=== PATIENT | female | born 1965 | race Caucasian/White ===

== ENCOUNTER 2017-08-22 00:53 | Emergency (ER) | payer SELFPAY ==
[2017-08-22 01:04] VITALS: BP 195/91; BMI 37.8
[2017-08-22] MEDS ORDERED: NS 1000 ML 1,000 ML IV ONE (01:49)
[2017-08-22] MEDS ORDERED: NS 1000 ML 1,000 ML ONE (01:51)
--- NOTE | 2017-08-22 02:01 | DR.GENAD ---
HPI - PCP Primary Care Physician: Jose Roberto Barrios - Complaint/Symptoms Chief Complaint:: Started having stomach pain, increased thirst and sugar level was reading high on blood sugar monitor at home. No history of blood sugar problems. Self Treatment fo Chief Complaint: took 20 units of 's lantus and 20 units of 's humalog twice in past 4 hours. She statesthat her PCP had informed her of being boederline diabetic about a year ago. - Nurses notes reviewed Nurses Notes Review: Yes - Source History Provided: Patient - Mode of Arrival Mode of Arrival: Ambulatory - Timing Onset of Chief Complaint: 08/21/17 PMH - PMH Past Medical History: Yes Past Medical History Comment: Fibromyalgia, RLS, Pancreatitis, Stomach problems , Bleeding ulcer Past Surgical History: Yes Surgical History: Abdominal Surgery, , Cholecystectomy, Hysterectomy, Ortho Surgery Past Surgical History Comment: pancreatic surgery - Family History History of Family Medical Conditions: Yes Family Medical History: Diabetes Mellitus, Cancer, [place], Coronary Artery Disease, Heart Failure, Sudden Cardiac , Hypertension - Social History Does patient currently use any type of tobacco product: No Have you used tobacco products in the last 12 months: No Type of Tobacco Use: None Does any household member use tobacco: No Alcohol Use: None Do you use any recreational Drugs:: No Lives With: Family Lives Where: Home - infectious screening In the last 2 months have you had wt loss of >10#?: NO Have you had fever, night sweats or hemotysis?: No Have you traveled outside the country in the last 6 months?: No Isolation: Standard ROS - Review of Systems Constitutional: No Symptoms Reported Eyes: No Symptoms Reported ENTM: No Symptoms Reported Respiratoy: No Symptoms Reported Cardiovascular: No Symptoms Reported Gastrointestinal/Abdominal: No Symptoms Reported Genitourinary: No Symptoms Reported Neurological: No Symptoms Reported Musculoskeletal: No Symptoms Reported Integumentary: No Symptoms Reported Hematologic/Lymphatic: No Symptoms Reported Endocrine: Increased Thirst Psychiatric: No Symptoms Reported All Other Systems: Reviewed and Negative PE - Vital Signs Vitals: Temperature 98.2 F Pulse Rate 103 Respiratory Rate 20 Blood Pressure 195/91 O2 Sat by Pulse Oximetry 100 - General Limitations: No Limitations General Appearance: Alert, In No Apparent Distress - Head Head Exam: Normal Inspection - Eyes Eye exam: Normal Appearance, PERRL, EOMI - ENT ENT Exam: Normal Exam - Neck Neck Exam: Normal Inspection, Full ROM - Chest Chest Inspection: Normal Inspection - Respiratory Respiratory Exam: Normal Lung Sounds Bilat - Cardiovascular Cardiovascular Exam: Regular Rate, Normal Rhythm, Normal Heart Sounds, +S1, +S2 - Abdominal Exam Abdominal Exam: Normal Inspection, Normal Bowel Sounds, Soft - Extremities Extremities Exam: Normal Inspection, Full ROM - Back Back Exam: Normal Inspection - Neurologic Neurological Exam: Alert, Oriented X3 - Psychiatric Psychiatric Exam: Normal Affect, Normal Mood - Skin Skin Exam: Warm, Dry, Intact, Normal Color Course - Reevaluation 1st: Improved - Education/Counseling Education/Counseling: Patient, Family, Education, Counseling Educated On: Treatment, Diagnosis, Prognosis, Needs for Follow Up ROR - Labs Reviewed Result Diagrams: 08/22/17 02:10 Laboratory: Sodium 132 mmol/L (136-145) L 08/22/17 02:10 Corrected Sodium 141 mmol/L (136-145) 08/22/17 02:10 Potassium 4.2 mmol/L (3.5-5.1) 08/22/17 02:10 Chloride 94 mmol/L (98-107) L 08/22/17 02:10 Carbon Dioxide 28.6 mmol/L (21-32) 08/22/17 02:10 BUN 12 mg/dL (7-18) 08/22/17 02:10 Creatinine 0.96 mg/dL (0.55-1.02) 08/22/17 02:10 Est GFR (MDRD) Af Amer > 60 (>60) 08/22/17 02:10 Est GFR (MDRD) Non-Af > 60 (>60) 08/22/17 02:10 Glucose 477 mg/dL (65-99) H 08/22/17 02:10 POC Glucose (mg/dL) 345 mg/dL (65-99) H 08/22/17 03:31 Hemoglobin A1c 10.9 % 08/22/17 02:10 Calcium 8.5 mg/dL (8.5-10.1) 08/22/17 02:10 Amylase 12 Units/L (25-115) L 08/22/17 02:10 Lipase 91 Units/L (73-393) 08/22/17 02:10 Specimen Type Clean catch urine 08/22/17 02:10 Urine Color Pale yellow (YELLOW) 08/22/17 02:10 Urine Appearance Clear (CLEAR) 08/22/17 02:10 Urine pH 6.0 (5.0 - 8.0) 08/22/17 02:10 Ur Specific [place] 1.005 (1.000-1.030) 08/22/17 02:10 Urine Protein Negative (NEGATIVE) 08/22/17 02:10 Urine Glucose (UA) 4+ (NEGATIVE) 08/22/17 02:10 Urine Ketones Negative (NEGATIVE) 08/22/17 02:10 Urine Occult Blood Negative (NEGATIVE) 08/22/17 02:10 Urine Nitrite Negative (NEGATIVE) 08/22/17 02:10 Urine Bilirubin Negative (NEGATIVE) 08/22/17 02:10 Urine Urobilinogen Normal (NORMAL) 08/22/17 02:10 Ur Leukocyte Esterase Negative (NEGATIVE) 08/22/17 02:10 Acetone, Semi-Quant Negative (NEGATIVE) 08/22/17 02:10 - Diagnosis Discharge Problem: Uncontrolled type 2 diabetes mellitus with hyperglycemia - Discharge Plan Disposition: 01 HOME, SELF-CARE Condition: Stable - Follow ups/Referrals Follow ups/Referrals: JOSE ROBERTO BARRIOS [Primary Care Provider] - 3 days - Instructions Instructions: Type 2 Diabetes Mellitus, Diagnosis, Adult
[2017-08-22] MEDS ORDERED: PROTONIX TAB 40 MG PO ONE ×2 (02:09→03:00)
[2017-08-22 02:31] LABS: BLOOD UREA NITROGEN 12 mg/dL (7-18); CALCIUM 8.5 mg/dL (8.5-10.1); CARBON DIOXIDE 28.6 mmol/L (21-32); CHLORIDE 94 mmol/L (98-107); COR NA(FOR HYPERGLY) 141 mmol/L (136-145); CREATININE 0.96 mg/dL (0.55-1.02); SODIUM 132 mmol/L (136-145); eGFR BLACK RACES > 60 (>60); eGFR NON BLACK RACES > 60 (>60)
[2017-08-22 02:33] LABS: BILIRUBIN,URINE NEGATIVE (NEGATIVE); BLOOD/HEMOGLOBIN,URINE NEGATIVE (NEGATIVE); GLUCOSE, URINE 4+ (NEGATIVE); KETONES,URINE NEGATIVE (NEGATIVE); LEUKOCYTE ESTERASE ,URINE NEGATIVE (NEGATIVE); NITRITES,URINE NEGATIVE (NEGATIVE); PROTEIN,URINE NEGATIVE (NEGATIVE); UROBILINOGEN,URINE NORMAL (NORMAL)
[2017-08-22 02:37] LABS: APPEARANCE,URINE CLEAR (CLEAR); COLOR,URINE PALE YELLOW (YELLOW)
[2017-08-22 02:42] LABS: AMYLASE 12 Units/L (25-115); LIPASE 91 Units/L (73-393)
[2017-08-22] MEDS ORDERED: ZOFRAN INJ 4 MG VIAL IVP ONE (02:58)
[2017-08-22] MEDS ORDERED: TORADOL 30 MG VIAL IVP ONE (02:58)
[2017-08-22] MEDS ORDERED: ZOFRAN INJ 4 MG VIAL ONE (03:00)
[2017-08-22] MEDS ORDERED: TORADOL 30 MG VIAL ONE (03:00)
[2017-08-22] MEDS: GLUCOPHAGE ONE ×2 (03:40→03:53)
[2017-08-22] MEDS ORDERED: GLUCOPHAGE PO ONE (04:00)
== END 2017-08-22 04:35 | disposition home or self-care (01) ==
LOC: ER 00:53
DX: E11.65 Type 2 diabetes mellitus with hyperglycemia (principal)
CPT/HCPCS: 36415; 80048; 81003; 82009; 82150; 83036; 83690; 96365; 96374; 96375; 99283; A4222; J1885; J2405